=== PATIENT | female | born 1995 | race Hispanic/Latino ===

== ENCOUNTER 2020-10-06 07:00 | Day surgery (SDC) | payer OTHER ==
[~2020-10-06 07:00] MED LIST: ABILIFY5 MG PO; SYNTHROID25 MCG PO; TOPAMAX25 MG PO
[2020-10-06] MEDS ORDERED: CLARITIN10 M2 PO (07:28)
--- NOTE | 2020-10-06 11:27 | NUR ---
PATIENT BACK TO ROOM FROM PCU. BEDSIDE REPORT FROM JOSEPHINE BLACK. PATIENT AWAKE ON AND OFF. IV SL. PATIENT TOLERATING DRINKS OF APPLEJUICE. ENCOURAGED NOT TO GULP FLUIDS. PATIENT FACE SCALE INDICATES 2/10 ON PAIN SCALE. NO OTHER NEEDS AT THIS TIME.
--- NOTE | 2020-10-06 11:29 | NUR ---
10/06/20 1129 Sheets,Araseli 1056 PT ARRIVED TO PACU AND REACTIVE TO TACTILE STIMULI. VSS. PT ON 10 L VIA MASK. 1057 O2 DECREASED TO 6L. 1059 O2 REMOVED, HOB INCREASED PER PT. PT ASKED FOR HER MOM. 1115 VSS. PT BACK TO ROOM AND REPORT TO DS RN. PT SIPPING JUICE PER REQUEST.
--- NOTE | 2020-10-06 12:26 | NUR ---
STEADY ON FEET WITH ONE PERSON STAND BY ASSIST FOR AMBULATION TO BR. DENIES NAUSEA. USES FACES SCALE TO RATE PAIN 0-2/10. PT VOIDS UNMEASURED URINE. REVIEWED DISCHAGE INSTRUCTIONS WITH PT AT CAREGIVER AT BEDSIDE.
== END 2020-10-06 12:15 | disposition home or self-care (01) ==
LOC: DS 07:00 → OPS 07:00 → DS 08:15 → OPS 08:15 → DS 09:15 → OPS 12:15
PROVIDERS: ATTEND Dentist General Practice
PROC: 0CCWXZ1 Extirpation of Matter from Upper Tooth, Multiple, External Approach (ICD-10-PCS; 2020-10-06)
PROC: 0CCXXZ1 Extirpation of Matter from Lower Tooth, Multiple, External Approach (ICD-10-PCS; principal; 2020-10-06 08:15)
DX: K02.9 Dental caries, unspecified (principal); Q90.9 Down syndrome, unspecified; F32.9 Major depressive disorder, single episode, unspecified; E66.9 Obesity, unspecified; Z79.899 Other long term (current) drug therapy; Z79.890 Hormone replacement therapy; Z91.018 Allergy to other foods
CPT/HCPCS: 00170; J1100; J1885; J2250; J2405; J2704; J2765; J3010; J7121

== ENCOUNTER 2024-07-02 05:55 | Day surgery (SDC) | payer OTHER ==
[~2024-07-02] VITALS: Ht 137.2 cm; Wt 97.3 kg
[~2024-07-02 05:55] MED LIST changes: -ABILIFY5 MG PO; +LACTATED RINGER'S 1,000 ML IV SCH; +MIDAZOLAM HCL 10 MG/5 ML SYR ONE; -SYNTHROID25 MCG PO; -TOPAMAX25 MG PO
[2024-07-02] MEDS ORDERED: fentaNYL citrate 100 MCG/2 ML VIAL ONE (05:59)
[2024-07-02] MEDS ORDERED: SUCCINYLCHOLINE IN 0.9% NACL 200 MG/10 ML SYRINGE ONE (05:59)
[2024-07-02] MEDS ORDERED: SUGAMMADEX SODIUM 200 MG/2 ML ML ONE (05:59)
[2024-07-02] MEDS ORDERED: LIDOCAINE HCL 4% 5 ML AMP ONE (05:59)
[2024-07-02] MEDS ORDERED: KETOROLAC TROMETHAMINE 30 MG/ML VIAL ONE (05:59)
[2024-07-02] MEDS ORDERED: propofoL 200 MG/20 ML VIAL ONE (05:59)
[2024-07-02] MEDS ORDERED: ROCURONIUM BROMIDE 50 MG/5 ML SYR ONE (05:59)
[2024-07-02] MEDS ORDERED: LACTATED RINGER'S 1,000 ML IV ONE (05:59)
[2024-07-02] MEDS ORDERED: MIDAZOLAM HCL 2 MG/2 ML VIAL ONE (05:59)
[2024-07-02] MEDS ORDERED: FAMOTIDINE 20 MG/ 2 ML VIAL ONE (05:59)
[2024-07-02] MEDS ORDERED: METOCLOPRAMIDE HCL 10 MG/2 ML SDV ONE (05:59)
[2024-07-02] MEDS ORDERED: DEXAMETHASONE SOD PHOS 4 MG/ML VIAL ONE (05:59)
[2024-07-02] MEDS ORDERED: ondansetron HCL 4 MG/2 ML VIAL ONE (05:59)
[2024-07-02] MEDS ORDERED: MIDAZOLAM HCL 10 MG/5 ML SYR PO ONE (06:00)
[2024-07-02] MEDS ORDERED: OXYMETAZOLINE HCL 30 ML BTL ONE (06:00)
--- NOTE | 2024-07-02 06:01 | NUR ---
0550 VERBAL ORDER FROM HENNY SUTTON SALAD COUNTER ATTENDANT GIVEN FOR ORAL VERSED 10-20 MG PO PRN FOR PRE OP ANXIETY AND SEDATION.
[2024-07-02] MEDS ORDERED: LIDOCAINE HCL 1% 5 ML SDV INJ ONE (07:00)
[2024-07-02] MEDS ORDERED: IBLOOD GLUCOSE TEST STRIP 1 EA TEST VI PRN ×2 (07:00→08:00)
[2024-07-02] MEDS ORDERED: fentaNYL citrate 50 MCG/ML SDV IV PRN (08:00)
[2024-07-02] MEDS ORDERED: PROCHLORPERAZINE EDISYLATE 10 MG/2 ML VIAL IV PRN (08:00)
[2024-07-02] MEDS ORDERED: MORPHINE SULFATE 10 MG/ML VIAL IV PRN (08:00)
[2024-07-02] MEDS ORDERED: droPERidol 5 MG/2 ML VIAL IV PRN (08:00)
[2024-07-02] MEDS ORDERED: NALOXONE HCL 0.4 MG SYR IV PRN (08:00)
[2024-07-02] MEDS ORDERED: METOCLOPRAMIDE HCL 10 MG/2 ML SDV IV PRN (08:00)
[2024-07-02] MEDS ORDERED: ondansetron HCL 4 MG/2 ML VIAL IV PRN (08:00)
--- NOTE | 2024-07-02 08:46 | NUR ---
07/02/24 0846 Shraddha Mcmahon 0833- PT ARRIVES TO PACU NONAROUSABLE TO STIMULI WITH AN OPA IN PLACE. PT ALSO NEEDING A JAW THRUST TO MAINTAIN PATENT AIRWAY. RESP EVEN AND SHALLOW. OXYGEN SAT HIGH 90'S TO 100% ON 10L VIA MASK. 0842- PT IS ABLE TO SWALLOW. PT DOES NOT FOLLOW COMMANDS. OPA AND JAW THRUST REMAIN. OXYGEN SAT 100% ON 10L VIA MASK.
--- NOTE | 2024-07-02 09:28 | NUR ---
0955 PT ARRIVED TO DAY SURGERY FROM PACU VIA STRECHER. PT AWAKE, BUT DROWSEY. PT REPORTS SOME PAIN IN THROAT AREA. PT REPORTS NO NAUSEA. PT ABLE TO TOLERATE PO JELLO. PT SAYS PO ICE WATER AND POPSICLE HELPS PAIN. PT ABLE TO TOLERATE BOTH. IV ASSESSED, VITALS TAKEN. PT RESTING IN BED WITH MOM AT BEDSIDE. PT BREATHING EQUAL AND UNLABORED, PT HAS P[RODUCTIVE COUGH. PT HAS CALL LIGHT WITHIN REACH.
--- NOTE | 2024-07-02 10:07 | NUR ---
0935 PT ABLE TO AMBULATE TO BATHROOM AND VOID 300 MLS OF URINE. PT MOTHER ASSISTING PT GETTING DRESSED.
[2024-07-02 10:15] VITALS: BP 123/66
--- NOTE | 2024-07-02 10:31 | NUR ---
1015 DISCHARGE INFORMATION GONE OVER WITH PT MOTHER AND BROTHER AT BEDSIDE. NO QUESTIONS AT THIS TIME. 1018 IV DISCONTINUED. 1020 PT DISCHARGED FROM DAY SURGERY VIA WHEELCHAIR TO THE FRONT OF THE HOSPITAL TO MOM'S CAR.
== END 2024-07-02 10:20 | disposition home or self-care (01) ==
LOC: DS 05:55
PROVIDERS: ATTEND Dentist General Practice
PROC: 0CDXXZ2 Extraction of Lower Tooth, All, External Approach (ICD-10-PCS; principal; 2024-07-02)
PROC: 0CDWXZ2 Extraction of Upper Tooth, All, External Approach (ICD-10-PCS; 2024-07-02)
DX: K02.9 Dental caries, unspecified (principal); Q90.9 Down syndrome, unspecified; G31.84 Mild cognitive impairment of uncertain or unknown etiology; Z79.899 Other long term (current) drug therapy
CPT/HCPCS: 00170; 84703; J0330; J1100; J1885; J2250; J2405; J2704; J2765; J3010; J3490; J7121